=== PATIENT | female | born 1965 | race Caucasian/White ===

== ENCOUNTER 2019-01-01 09:21 | Observation (INO) ==
[2019-01-01 09:59] LABS: Hematocrit 28.1 % (37.0-47.0); Mean Cell Volume 71.3 fl (78-100); Mean Corpuscular Hemoglobin 19.8 pg (27-31); Mean Corpuscular Hgb Conc 27.8 g/dl (32-36); Mean Platelet Volume 9.1 fl (8-12.5); Platelet Count 230 K/mm3 (150-450); Red Blood Count 3.94 M/mm3 (4.2-5.4); Red Cell Distribution Width 19.7 % (11.5-14.0)
[2019-01-01 10:08] LABS: Hemoglobin 7.8 gm/dL (12.5-16.0)
[2019-01-01 10:09] LABS: Total Cells Counted 100
[2019-01-01 10:13] LABS: Albumin * 3.5 gm/dl (3.4-5.0); Anion Gap 12.9 mmol/L (6.8-13.8); BUN/Creatinine Ratio 20.8 (9.0-21.6); Bilirubin, Total 0.7 mg/dL (0.0-1.1); Calcium * 8.9 mg/dL (7.9-10.9); Carbon Dioxide 25.5 mmol/L (24-32.6); Potassium 4.4 mmol/L (3.4-4.6); Total Protein 7.3 gm/dL (6.2-8.2)
[2019-01-01 10:24] LABS: Anisocytosis 2+; Lymphocyte 13 % (20-51); Monocyte 16 % (0-9); Neutrophil 71 % (42-75); Platelet Estimate Normal (NORMAL)
[2019-01-01 10:25] LABS: Hypochromia 2+
[2019-01-01 10:26] LABS: Poikilocytosis 1+
[2019-01-01] MEDS ORDERED: DIATRIZOATE MEGLUMINE, SODIUM 30 ML BTL PO ONE (10:29)
[2019-01-01 12:44] LABS: Urine Appearance Clear (CLEAR); Urine Color Yellow
[2019-01-01 12:45] LABS: Urine Bacteria None Seen; Urine Bilirubin Negative (NEGATIVE); Urine Blood Negative /ul (NEGATIVE); Urine Ketone Negative (NEGATIVE); Urine Nitrite Negative (NEGATIVE); Urine Protein Negative (NEGATIVE); Urine RBC None Seen /hpf (0-5); Urine Urobilinogen Normal (NORMAL); Urine WBC 0-5 /hpf (0-5)
[2019-01-01] MEDS ORDERED: NORMAL SALINE 1,000 ML IV ONE (14:21)
[2019-01-01] MEDS ORDERED: CEFEPIME HCL 1 GM/100 ML BAG IV ONE (15:56)
--- NOTE | 2019-01-01 16:16 | ERNOTE ---
Abdominal HPI - Narrative Date of Service: 01/01/19 - General Chief Complaint: Abdominal Pain Time Seen by Provider: 01/01/19 10:13 Source: patient Exam Limitations: no limitations - Immun/Allergies/Home Medications Immunizatons: IMMUNIZATION HX Immunizations Up to Date Yes History of Influenza Vaccine Yes Hx Pneumococcal Vaccination Yes Allergies/Adverse Reactions: Allergies Sulfa (Sulfonamide Antibiotics) Allergy (Verified 01/01/19 09:38) Home Medications: HOME MEDICATIONS NK 01/01/19 [Last Taken Unknown] - History of Present Illness Narrative: Patient presents to the ED for severe RLQ pain. This started approx 5 days ago. It initially was waxing and waning but has become constant. It hurts to lie flat and to walk. Constant pain now. No radiation of the pain. No fever or vomiting. Has never had this before. No urianry Sx. No CP or SOB. Pain can be severe. Timing: constant, getting worse Quality: moderate Activities at Onset: none Modifying Factors - (Improves): Present: rest Modifying Factors - (Worsens): Present: other - walking, being flat Associated Symptoms: Absent: chest pain, nausea, vomiting, shortness of breath Prior Abdominal Problems: Present: none Prior Treatment: Absent: recently seen Review of Systems - Review of Systems Constitutional: Absent: fever EYE: Present: no symptoms reported Respiratory: Absent: shortness of breath Cardiology: Absent: chest pain Gastrointestinal/Abdominal: Present: See HPI Genitourinary: Absent: dysuria Musculoskeletal: Present: no symptoms reported Skin: Absent: rash All Other Systems: All systems neg except as marked Medical History (Updated 01/01/19 @ 09:38 by Glenny Starr RN) No pertinent past medical history Surgical History: Surgical History (Updated 01/01/19 @ 09:38 by Glenny Starr RN) Hx of foot surgery Social History: Preferred Language Icelandic Do you have any zoroastrianism or No cultural preference? Smoking Status Never smoker Alcohol Use occasionally Drug Use none No Social History Section defined Physical Exam - Physical Exam General Appearance: Present: alert, no apparent distress Head Exam: Present: normal inspection, no evidence of injury Eye Exam: Normal inspection: bilateral, PERRL: bilateral Ears, Nose, Throat: Present: normal ENT inspection Neck: Present: normal inspection Respiratory: Present: no respiratory distress, normal breath sounds, no accessory muscle use, lungs clear Cardiovascular/Chest: Present: regular rate, rhythm, normal peripheral pulses Gastrointestinal/Abdominal: Present: normal bowel sounds, soft, other - moderate RLQ tendenress. Guarding noted. Exam concerning for appendicitis Back Exam: Absent: CVA tenderness (R), CVA tenderness (L) Extremity Exam: Present: normal inspection Neurological Exam: Present: alert, no motor/sensory deficits Skin Exam: Present: normal color, warm/dry Progress - Results and Orders Patient's Lab Results:: I have reviewed the patient's lab results. - Vital Signs Patient's Vital Signs:: I have reviewed the patient's vital signs. Vital Signs: Vital Signs 01/01/19 09:36 Temperature 36.7 C Pulse Rate 86 Respiratory Rate 16 Blood Pressure 151/66 H O2 Sat by Pulse Oximetry 100 - X-Ray X-Ray #1 X-Ray: abdomen Interpretation: Interp. by me X-ray Comments: No acute process, no real time radiology reads. - CT/Ultrasound CT/Ultrasound Narrative: I reviewed official radiology reports for CT scan abd/pelvis and US pelvis. - Progress/Reassessment Chief Complaint: Abdominal Pain Progress Note-Subjective: 01/01/19 16:15 IV fluids and IV ABx given. Work up c/w appendicitis. D/E Dr Lopez who will see the patient in the ED and also d/w the patient. She understands. Departure Clinical Impression: Appendicitis, Abdominal pain - Departure Disposition: Still a patient Condition: Stable Referrals: Yaquelin Encarnacion, TRAFFIC SAFETY ADMINISTRATOR [Primary Care Provider] -
--- NOTE | 2019-01-01 17:02 | HP ---
Chief Complaint - Chief Complaint Date of Service: 01/01/19 Time of Service: 16:57 Chief Complaint: acute appy History of Present Illness: Brittani is a pleasant 53-year-old female who developed abdominal pain on Thursday. She started taking Tums thinking it was stomach upset. The pain gradually worsened and last night she was unable to sleep due to the pain. She has never felt like this before. The pain is in the right lower quadrant. Denies any nausea or vomiting. She has never had a colonoscopy. She has been having frequent bowel movements after drinking the contrast. She is otherwise generally healthy and does not take any medications. She is accompanied by her 2 sisters. Medical History (Updated 01/01/19 @ 16:16 by Will Saavedra MD) No pertinent past medical history Surgical History: Surgical History (Updated 01/01/19 @ 09:38 by Glenny Starr RN) Hx of foot surgery Family History: Family History (Last Updated 01/01/19 @ 16:10 by Emiliano Rojas RN) Mother Hypertension Diabetes Father Esophageal cancer Social History: Preferred Language Dominican Do you have any buddhism or No cultural preference? Smoking Status Never smoker Alcohol Use occasionally Drug Use none No Social History Section defined Review Of Systems (GEN) - Review of Systems Generalized/Overall Review: Present: Malaise EENTM: Present: No Symptoms Reported Respiratory: Present: No Symptoms Reported Cardiac: Present: No Symptoms Reported Abdominal: Present: Abdominal Pain Genitourinary: Present: No Symptoms Reported Musculoskeletal: Present: No Symptoms Reported Neurological: Present: No Symptoms Reported Skin: Present: No Symptoms Reported Endocrine: Present: No Symptoms Reported Immunizations: IMMUNIZATION HX Immunizations Up to Date Yes History of Influenza Vaccine Yes Hx Pneumococcal Vaccination Yes Allergies/Adverse Reactions: Allergies Allergy/AdvReac Type Severity Reaction Status Date / Time Sulfa (Sulfonamide Allergy Verified 01/01/19 09:38 Antibiotics) Home Medications: HOME MEDICATIONS NK 01/01/19 [Last Taken Unknown] Exam - Exam Vital Signs: Vital Signs - Last Taken Temp 37.0 C 01/01/19 16:08 Pulse 84 01/01/19 16:08 Resp 14 01/01/19 16:08 BP 136/66 01/01/19 16:08 Pulse Ox 100 01/01/19 16:08 Constitutional: Present: Alert, Oriented x3, Cooperative ENT Exam: Present: hearing grossly normal Eye Exam: bilateral eye: normal inspection Neck: Present: full range of motion, supple Back Exam: Present: normal inspection Breasts: Present: Exam deferred Respiratory: Present: lungs clear, normal breath sounds Cardiovascular/Chest: Present: regular rate, rhythm Abdomen: Present: Normal bowel sounds, soft, obese, tender /Rectal: Present: Exam deferred Extremity: Present: normal range of motion Skin Exam: Present: normal color, warm/dry Neurologic: Present: executive officer special warfare team II-XII nml as tested Appearance: Present: appropriate appearance Eye contact: Present: cooperative, good eye contact Thoughts: Present: normal thought pattern Diagnostic Studies: Abnormal Lab Results 01/01/19 01/01/19 Range/Units 09:51 09:51 RBC 3.94 L (4.2-5.4) M/mm3 Hgb 7.8 L* (12.5-16.0) gm/dL Hct 28.1 L (37.0-47.0) % MCV 71.3 L (78-100) fl MCH 19.8 L (27-31) pg MCHC 27.8 L (32-36) g/dl RDW 19.7 H (11.5-14.0) % Lymphocytes % (Manual) 13 L (20-51) % Monocytes % (Manual) 16 H (0-9) % Lymphocytes # (Manual) 0.9 L (1.5-3.5) k/mm3 Monocytes # (Manual) 1.1 H (0.0-1.0) k/mm3 Amylase 19 L (25-115) U/L Lipase 64 L (73-393) U/L Laboratory Results WBC 7.0 K/mm3 (4.0-10.5) 01/01/19 09:51 RBC 3.94 M/mm3 (4.2-5.4) L 01/01/19 09:51 Hgb 7.8 gm/dL (12.5-16.0) L* 01/01/19 09:51 Hct 28.1 % (37.0-47.0) L 01/01/19 09:51 MCV 71.3 fl (78-100) L 01/01/19 09:51 MCH 19.8 pg (27-31) L 01/01/19 09:51 MCHC 27.8 g/dl (32-36) L 01/01/19 09:51 RDW 19.7 % (11.5-14.0) H 01/01/19 09:51 Plt Count 230 K/mm3 (150-450) 01/01/19 09:51 MPV 9.1 fl (8-12.5) 01/01/19 09:51 71 % (42-75) 01/01/19 09:51 13 % (20-51) L 01/01/19 09:51 16 % (0-9) H 01/01/19 09:51 5.0 K/mm3 (1.3-6.0) 01/01/19 09:51 0.9 k/mm3 (1.5-3.5) L 01/01/19 09:51 1.1 k/mm3 (0.0-1.0) H 01/01/19 09:51 Normal (NORMAL) 01/01/19 09:51 2+ 01/01/19 09:51 1+ 01/01/19 09:51 2+ 01/01/19 09:51 Sodium 139 mmol/L (132-142) 01/01/19 09:51 139 mmol/L (130-142) 01/01/19 09:51 Potassium 4.4 mmol/L (3.4-4.6) 01/01/19 09:51 Chloride 105 mmol/L (97-106) 01/01/19 09:51 Carbon Dioxide 25.5 mmol/L (24-32.6) 01/01/19 09:51 12.9 mmol/L (6.8-13.8) 01/01/19 09:51 BUN 15 mg/dL (3-23) 01/01/19 09:51 0.72 mg/dL (0.4-1.4) 01/01/19 09:51 Est GFR (Non-Af Amer) 91 mL/min (60-130) 01/01/19 09:51 20.8 (9.0-21.6) 01/01/19 09:51 96 mg/dL (70-110) 01/01/19 09:51 Calcium 8.9 mg/dL (7.9-10.9) 01/01/19 09:51 Calcium Adj for Albumin 9.0 mg/dL (8.4-10.2) 01/01/19 09:51 0.7 mg/dL (0.0-1.1) 01/01/19 09:51 AST 18 U/L (0-48) 01/01/19 09:51 ALT 40 U/L (19-67) 01/01/19 09:51 72 U/L (50-170) 01/01/19 09:51 7.3 gm/dL (6.2-8.2) 01/01/19 09:51 3.5 gm/dl (3.4-5.0) 01/01/19 09:51 Amylase 19 U/L (25-115) L 01/01/19 09:51 64 U/L (73-393) L 01/01/19 09:51 Serum HCG, Qual Negative (NEGATIVE) 01/01/19 09:51 Yellow 01/01/19 12:20 Clear (CLEAR) 01/01/19 12:20 6.0 pH (5.0-7.0) 01/01/19 12:20 Ur Specific [place] 1.020 SP.GR. (1.005-1.010) 01/01/19 12:20 Negative mg/dL (NEGATIVE) 01/01/19 12:20 Negative mg/dL (NEGATIVE) 01/01/19 12:20 Negative mg/dL (NEGATIVE) 01/01/19 12:20 Negative /ul (NEGATIVE) 01/01/19 12:20 Negative (NEGATIVE) 01/01/19 12:20 Negative mg/dl (NEGATIVE) 01/01/19 12:20 Normal EU/dl (NORMAL) 01/01/19 12:20 Ur Leukocyte Esterase Negative /ul (NEGATIVE) 01/01/19 12:20 None seen /hpf (0-5) 01/01/19 12:20 0-5 /hpf (0-5) 01/01/19 12:20 Ur Epithelial Cells 0-5 /hpf (0-5) 01/01/19 12:20 None seen (NONE) 01/01/19 12:20 No culture indicated 01/01/19 12:20 Assessment/Plan - Narrative Narrative: Patient will be taken to the OR for a laparoscopic possible open appendectomy. Recent benefits of the procedure were discussed with the patient. This includes bleeding, infection and damage to other organs, and recurrent infection. Voices understanding and would like to proceed. Antibiotics were ordered. Thank you for allowing me to participate in the care of the patient. - Assessment/Plan (1) Obesity (BMI 30-39.9) Problem: Acute (2) Appendicitis Problem: Acute (3) Abdominal pain Problem: Acute
--- NOTE | 2019-01-01 18:40 | ANES ---
Anesthesia Pre Procedure Eval Vitals/Labs: Last Vital Signs Temp 37.0 C 01/01/19 16:08 Pulse 84 01/01/19 16:08 Resp 14 01/01/19 16:08 BP 136/66 01/01/19 16:08 Pulse Ox 100 01/01/19 16:08 HOME MEDICATIONS NK 01/01/19 [Last Taken Unknown] Allergies/Adverse Reactions: Allergies Allergy/AdvReac Type Severity Reaction Status Date / Time Sulfa (Sulfonamide Allergy Verified 01/01/19 09:38 Antibiotics) - Planned Procedure Planned Procedure: Lap appy Medication List Reviewed:: Yes Allergies Verified: Yes Medical History (Updated 01/01/19 @ 17:02 by Sunita Lopez DO) No pertinent past medical history Surgical History (Updated 01/01/19 @ 09:38 by Glenny Starr RN) Hx of foot surgery Family History (Last Reviewed 01/01/19 @ 18:40 by Tu Teresa CRNA) Mother Hypertension Diabetes Father Esophageal cancer - Family Anesthesia History Family History:: no untoward family reactions to anesthesia, no familial bleeding tendencies, no family history of clotting disorders, no family history of premature - Airway/Neck/Teeth Within Normal Limits:: Yes Teeth Condition: intact Mallampatti Score: 2 Thyromental (T-M) distance: > 6 cm Mandibulo Hyoid distance: > 3 cm - Respiratory Respiratory Physical: lungs clear Smoking Status: Never smoker Discussed smoking cessation including day of surgery: No Sleep Apnea currently treated: No Sleep Apnea by current assessment: No Discussed Risks/Treatment of RADHA: No - Cardiovascular Tolerate Activity: Good Heart Sounds: S1 & S2, Regular - Anesthesia Assessment and Plan ASA Class: PS, II, E Anesthesia Type Plan: General ET
[2019-01-01] MEDS ORDERED: BUPIVACAINE HCL 50 ML VIAL IJ ONE (19:50)
[2019-01-01] MEDS ORDERED: RINGER'S SOLUTION,LACTATED 1,000 ML IV PRN (19:50)
[2019-01-01] MEDS ORDERED: IBUPROFEN 800 MG TABLET PO PRN (20:35)
[2019-01-01] MEDS ORDERED: ACETAMINOPHEN 325 MG TABLET PO PRN (20:35)
[2019-01-01] MEDS ORDERED: ONDANSETRON HCL/PF 2 MG/ML VIAL IV PRN (20:35)
--- NOTE | 2019-01-01 20:38 | OR ---
Operative Report - Dictated Report Narrative: Date of Service: 01/01/19 Procedure: laparoscopic appendectomy Pre-procedure diagnosis: acute appendicitis Post-procedure diagnosis: same Surgeon: Dr. Sunita Lopez Anesthesia: general Indication for procedure: Suha is a pleasant 53-year-old female who has had 5 days of abdominal pain. Her CT scan showed acute appendicitis, which was confirmed with a pelvic ultrasound. Description of procedure: After appropriate informed consent was obtained erwin polo was taken to the operating room, placed in the supine position. General anesthesia was achieved. The RN placed a Peña catheter. The patient was prepped and draped in the usual sterile fashion. A 5 mm periumbilical incision was made, hemostat was used to dissect down to the fascia. A Veress needle was inserted, a saline drop test was performed which was satisfactory. The abdomen was insufflated to 15 mmHg. A 5mm blunt trocar was placed at the umbilicus. The camera was inserted, there was no evidence of a trocar injury. A 12 mm trocar was placed in the left lower quadrant of the abdomen. A 5 mm trocar was placed in the suprapubic region. The patient was placed in a head down, rotated left position, to facilitate exposure. The appendix was identified, it appeared consistent with acute appendicitis. A window was made in the mesoappendix. The 45 mm echelon stapler with the white load was placed across the base of the appendix. There was good hemostasis. The echelon 45 mm stapler with a white load was then placed across the mesoappendix x 2. There was good hemostasis. The appendix was removed through an Endo Catch bag. The abdomen was inspected and the staple lines were intact, with good hemostasis. The remainder of the abdomen was inspected and was satisfactory. The 12 mm trocar site was closed with an 0 Vicryl suture using a Padilla-Korey device. The abdomen was desufflated. Local anesthetic was injected. The incisions were closed with inverted interrupted 4-0 Monocryl sutures. Mastisol and Steri-Strips were applied. The patient tolerated the procedure well and was transported to the PACU in satisfactory condition. Estimated blood loss: minimal Complications: none Specimens to pathology: appendix Disposition: The patient will be admitted to the floor for observation.
--- NOTE | 2019-01-01 20:44 | ANES ---
Post Anesthesia Discharge - Transfer of Care Transfer of Care handoff given to nurse: Yes - Discharge from PACU Discharge from PACU when meets criteria: Yes - Discharge to ASU Discharge to ASU-no complications/pt stable: Yes
[2019-01-01] MEDS: HYDROcodone/ACETAMINOPHEN 1 EACH TABLET PO PRN (22:15)
[2019-01-01] MEDS: POTASSIUM CHLORIDE/D5-0.5NS 1,000 ML IV SCH (22:16)
--- NOTE | 2019-01-01 23:02 | ANES ---
Post Anesthesia Assessment - Vital Signs Vitals: Last Vital Signs Temp 36.7 C 01/01/19 21:20 Pulse 59 L 01/01/19 22:05 Resp 14 01/01/19 21:20 BP 103/64 01/01/19 22:05 Pulse Ox 93 01/01/19 22:05 Airway Patency: Normal - Mental Status Level Of Consciousness: Awake - Pain Level Pain Score: 0 - N/V Assessment Nausea/Vomiting Presence: None Dehydration:: No
[2019-01-02] MEDS: HYDROcodone/ACETAMINOPHEN 1 EACH TABLET PO PRN (07:33)
[2019-01-02 09:28] VITALS: BP 101/41
--- NOTE | 2019-01-02 09:38 | DS ---
(1) Obesity (BMI 30-39.9) Problem: Acute (2) Appendicitis Problem: Acute Qualifiers: Appendicitis type: acute appendicitis Appendicitis gangrene presence: without gangrene Appendicitis perforation presence: without perforation Appendicitis abscess presence: without abscess (3) Abdominal pain Problem: Resolved Description of Stay: Brittani is a pleasant 53-year-old female who was admitted through the emergency room for acute appendicitis. She was taken to the operating room. She is feeling well, and feels ready for discharge. Procedures Performed: see notes below Results and Findings: Lab Pending Results 01/01/19 09:51: WBC 7.0, RBC 3.94 L, Hgb 7.8 L*, Hct 28.1 L, MCV 71.3 L, MCH 19.8 L, MCHC 27.8 L, RDW 19.7 H, Plt Count 230, MPV 9.1, Neutrophils % (Manual) 71, Lymphocytes % (Manual) 13 L, Monocytes % (Manual) 16 H, Neutrophils # (Man ual) 5.0, Lymphocytes # (Manual) 0.9 L, Monocytes # (Manual) 1.1 H, Platelet Estimate Normal, Hypochromasia 2+, Poikilocytosis 1+, Anisocytosis 2+ 01/01/19 09:51: Sodium 139, Plasma Sodium 139, Potassium 4.4, Chloride 105, Carbon Dioxide 25.5, Anion Gap 12.9, BUN 15, Creatinine 0.72, Est GFR (Non-Af Amer) 91, BUN/Creatinine Ratio 20.8, Random Glucose 96, Calcium 8.9, Calcium Adj for Albumin 9.0, Total Bilirubin 0.7, AST 18, ALT 40, Alkaline Phosphatase 72, Total Protein 7.3, Albumin 3.5, Amylase 19 L, Lipase 64 L 01/01/19 09:51: Serum HCG, Qual Negative 01/01/19 12:20: Urine Color Yellow, Urine Appearance Clear, Urine pH 6.0, Ur Specific [place] 1.020, Urine Protein Negative, Urine Glucose (UA) Negative, Urine Ketones Negative, Urine Blood Negative, Urine Nitrate Negative, Urine Bilirubin Negative, Urine Urobilinogen Normal, Ur Leukocyte Esterase Negative, Urine RBC None seen, Urine WBC 0-5, Ur Epithelial Cells 0-5, Urine Bacteria None seen, Urine Culture Comments No culture indicated Discharge Location: Home Disposition: Home self-care Condition: Stable Discharge Activity: Activity as tolerated Discharge Diet: General/regular food Referrals: Yaquelin Encarnacion FNP [Primary Care Provider] - Complete Home Medications List: Complete Home Medication List: HYDROcodone/ACETAMINOPHEN [[place] 5-325] 2 each PO Q6H PRN tablet 01/02/19 Ibuprofen [Motrin] 800 mg PO Q6H PRN tablet 01/02/19
[2019-01-02] MEDS: POTASSIUM CHLORIDE/D5-0.5NS 1,000 ML IV SCH (10:02)
== END 2019-01-02 10:20 | disposition home or self-care (01) ==
LOC: ER 09:21 → MS 19:40 → AMB 19:40
PROVIDERS: ADMIT Surgery; ATTEND Surgery
CPT/HCPCS: 36415; 74019; 74020; 74177; 76830; 76856; 80053; 81001; 82150; 83690; 84703; 85025; 88304; 96360; 96361; 99285; G0378; Q9967